=== PATIENT | male | born 1975 ===

== ENCOUNTER 2022-07-01 01:58 | Emergency (ER) | payer OTHER ==
[2022-07-01 02:23] VITALS: RESP 20; BMI 43.5
[2022-07-01 04:21] LABS: BASO % 0.9 % (0-2.0); EOS % 2.9 % (0-4.5); HEMATOCRIT 43.7 % (35.4-49); HEMOGLOBIN 14.7 GM/dL (11.7-16.9); LYMPH % 25.6 % (8-40); MCH 28.1 pg (25.7-33.7); MCHC 33.6 g/dl (32.0-35.9); MEAN CELL VOLUME 83.5 fl (80-96); MEAN PLT VOLUME 7.5 fl (7.5-11.1); MONO % 11.6 % (3.8-10.2); PLATELET COUNT 319 10^3/uL (134-434); RBC 5.23 M/mm3 (4.00-5.60); RDW 14.6 % (11.9-15.9); WHITE BLOOD COUNT 8.8 K/mm3 (4.0-10.0)
[2022-07-01 04:27] LABS: INR 1.11 (0.83-1.09); PROTHROMBIN TIME (PATIENT) 12.8 SEC (9.7-13.0)
[2022-07-01 04:30] LABS: ACTIVATED PTT 29.9 SECONDS (25.2-36.5)
[2022-07-01 04:35] LABS: ALBUMIN 3.6 g/dl (3.4-5.0); BLOOD UREA NITROGEN 14.6 mg/dL (7-18); CALCIUM 9.2 mg/dL (8.5-10.1)
[2022-07-01 04:40] LABS: BILIRUBIN,TOTAL 0.4 mg/dL (0.2-1); TOT PROT 7.4 g/dl (6.4-8.2)
[2022-07-01 12:52] VITALS: BP 137/88; PULSE 89; TEMP 97.8
== END 2022-07-01 13:00 | disposition home or self-care (01) ==
LOC: JER 01:58
DX: U07.1 COVID-19 (principal)
CPT/HCPCS: 0241U-QW; 36415; 71045-TC-FY; 80053; 84484; 85025; 85610; 85730; 93005; 93010; 99285-25